=== PATIENT | female | born 1965 | race Asian ===

== ENCOUNTER 2020-06-17 17:36 | Outpatient (CLI) | payer OTHER | END 2020-06-17 17:37 | disposition home or self-care (01) | LOC: COV 17:36 | PROVIDERS: ATTEND Family Medicine | DX: M79.10 Myalgia, unspecified site (principal); J34.89 Other specified disorders of nose and nasal sinuses; Z20.822 Contact with and (suspected) exposure to COVID-19 ==

== ENCOUNTER 2020-07-12 09:15 | Outpatient (CLI) | payer OTHER ==
[2020-07-12 12:07] LABS: BASOPHILS % (AUTO) 0.6 %; EOSINOPHILS # (AUTO) 0.1 10^3/uL (0.0-0.7); EOSINOPHILS % (AUTO) 1.2 %; HGB - HEMOGLOBIN 11.7 g/dL (12.0-16.0); LYMPHOCYTES # (AUTO) 1.2 10^3/uL (1.5-3.5); LYMPHOCYTES % (AUTO) 25.5 %; MEAN CORPUSCULAR HEMOGLOBIN 29.9 pg (27.0-31.0); MEAN CORPUSCULAR HGB CONC 31.3 g/dL (32.0-36.0); MEAN CORPUSCULAR VOLUME 95.7 fL (81.0-99.0); MEAN PLATELET VOLUME 9.9 fL (7.9-10.8); MONOCYTES # (AUTO) 0.3 10^3/uL (0.0-1.0); MONOCYTES % (AUTO) 6.6 %; NEUTROPHILS # (AUTO) 3.2 10^3/uL (1.5-6.6); NEUTROPHILS % (AUTO) 65.7 %; PLT - PLATELET COUNT 278 10^3/uL (130-450); RED BLOOD COUNT 3.91 10^6/uL (4.20-5.40); RED CELL DISTRIBUTION WIDTH 11.3 % (12.0-15.0); WHITE BLOOD COUNT 4.9 x10^3/uL (4.8-10.8)
[2020-07-12 13:00] LABS: ALBUMIN 4.5 g/dL (3.2-5.5); ALBUMIN/GLOBULIN RATIO 1.6 (1.0-2.2); ALKALINE PHOSPHATASE 40 IU/L (42-121); ALT ALANINE AMINOTRANSFERASE 19 IU/L (10-60); AST ASPARTATE AMINOTRANSFERASE 25 IU/L (10-42); BILIRUBIN,TOTAL 0.8 mg/dL (0.2-1.0); BUN - BLOOD UREA NITROGEN 16 mg/dL (6-20); CALCIUM 9.1 mg/dL (8.5-10.3); CARBON DIOXIDE - CO2 24 mmol/L (21-32); CHLORIDE 101 mmol/L (101-111); CHOL/HDL RATIO 2.6 (<4.4); CHOLESTEROL 178 mg/dL; CREATININE 0.7 mg/dL (0.4-1.0); GLUCOSE 85 mg/dL (70-100); HDL CHOLESTEROL 68 mg/dL; TOTAL PROTEIN 7.4 g/dL (6.7-8.2)
== END 2020-07-12 23:59 | disposition home or self-care (01) ==
LOC: LAB.WCP 09:15
PROVIDERS: ATTEND Physician Assistant Medical
DX: Z00.00 Encounter for general adult medical examination without abnormal findings (principal)
CPT/HCPCS: 36415; 80053; 80061; 83721; 84443; 85025

== ENCOUNTER 2021-01-17 11:14 | Outpatient (CLI) | payer OTHER ==
--- NOTE | 2021-01-20 16:37 | Mammography Report ---
BILATERAL DIGITAL SCREENING MAMMOGRAM 3D/2D: 01/17/2021 CLINICAL: Baseline exam. Routine screening.Priors were done in [facility], unable to retreive. No prior exams were available for comparison. The tissue of both breasts is heterogeneously dense. T his may lower the sensitivity of mammography. There is a benign normal lymph node in the left breast in the posterior depth in the upper outer quad rant. There is a 0.6 cm oval equal density focal asymmetry in the right breast at 8 o'clock middle depth 4. 5 cm from the nipple. No other significant masses, calcifications, or other findings are seen in either breast. IMPRESSION: INCOMPLETE: NEEDS ADDITIONAL IMAGING EVALUATION The 0.6 cm oval equal density focal asymmetry in the right breast resembles a cyst or a lymph node an d is indeterminate. Additional views with possible ultrasound are recommended. Given patient history of elevated lifetime breast cancer risk of approximately 28.5%, recommend cons ideration for annual screening breast MRI as an adjunct to screening mammography. This is to be offs et by approximately 6 months from patient's mammograms. This exam was interpreted at Station ID: [id number]. NOTE: For mammograms, a report in lay terms will be sent to the patient. Approximately 15% of breast malignancies will not be visualized mammographically. In the management of a palpable breast mass, a negative mammogram must not discourage biopsy of a clinically suspicious lesion. Electronically Signed By: Andrea Willis M.D. aty/:01/17/2021 12:41:28 ACR BI-RADS Category 0: Incomplete 3340F PARENCHYMAL PATTERN: (D) - The breast(s) demonstrate(s) heterogeneously dense fibroglandular pargina stout. BI-RADS CATEGORY: (0) - 0 Mammo and [place] [id number] Immediate follow-up LATERALITY: (R)
== END 2021-01-17 11:15 | disposition home or self-care (01) ==
LOC: DI 11:14
DX: Z12.31 Encounter for screening mammogram for malignant neoplasm of breast (principal); R92.8 Other abnormal and inconclusive findings on diagnostic imaging of breast

== ENCOUNTER 2021-03-07 10:47 | Outpatient (CLI) | payer OTHER ==
--- NOTE | 2021-03-10 10:20 | Ultrasound Report ---
LIMITED ULTRASOUND OF RIGHT BREAST AND AXILLA: 03/07/2021 CLINICAL: Patient returns today to evaluate a focal asymmetry in the right breast. Comparison is made to exams dated: 03/07/2021 mammogram and 01/17/2021 mammogram - [facility]. Color flow and real-time ultrasound of the right breast 7-9 o'clock, and axilla regions were performe d. Kirk scale images of the real-time examination were reviewed. There is a 0.8 cm x 0.3 cm x 0.7 cm wider than tall oval mass in the right breast at 8 o'clock middle depth 4 cm from the nipple. This oval mass is hypoechoic. This correlates with mammography finding s. Color flow imaging demonstrates that there is no vascularity present. No significant abnormalities were seen sonographically in the right axilla. IMPRESSION: PROBABLY BENIGN The 0.8 cm x 0.3 cm x 0.7 cm wider than tall oval mass in the right breast resembles a fibroadenoma a nd is probably benign. A follow-up right mammogram and a right ultrasound in 6 months is recommended to demonstrate stabilit y. Findings and recommendations were conveyed to the patient during today's evaluation. This exam was interpreted at Station ID: [id number]. Electronically Signed By: Andrea Willis M.D. aty/:03/07/2021 13:42:44 Ultrasound BI-RADS: 3 Probably benign BI-RADS CATEGORY: (3) - 3 Mammo and [place] [id number] 6 month follow-up LATERALITY: (R)
--- NOTE | 2021-03-10 10:20 | Mammography Report ---
UNILATERAL RIGHT DIGITAL DIAGNOSTIC MAMMOGRAM 3D/2D: 03/07/2021 CLINICAL: Patient returns today to evaluate a focal asymmetry in the right breast. Comparison is made to exam dated: 01/17/2021 mammogram - [facility]. The tissue of right breast is heterogeneously dense. This may lower the sensitivity of mammography. There is a 0.9 cm oval equal density focal asymmetry in the right breast at 8 o'clock middle depth 5 cm from the nipple. This is confirmed in today's additional views. No other significant masses or calcifications are seen in the breast. IMPRESSION: INCOMPLETE: NEEDS ADDITIONAL IMAGING EVALUATION The 0.9 cm oval equal density focal asymmetry in the right breast resembles a cyst or a lymph node an d is indeterminate. An ultrasound is recommended for further evaluation and is scheduled to immediately follow this exami nation. This exam was interpreted at Station ID: [id number]. NOTE: For mammograms, a report in lay terms will be sent to the patient. Approximately 15% of breast malignancies will not be visualized mammographically. In the management of a palpable breast mass, a negative mammogram must not discourage biopsy of a clinically suspicious lesion. Electronically Signed By: Andrea Willis M.D. aty/:03/07/2021 12:38:42 ACR BI-RADS Category 0: Incomplete 3340F PARENCHYMAL PATTERN: (D) - The breast(s) demonstrate(s) heterogeneously dense fibroglandular chuck stout. BI-RADS CATEGORY: (0) - 0 Ultrasound [id number] Immediate follow-up LATERALITY: (R)
== END 2021-03-07 10:48 | disposition home or self-care (01) ==
LOC: DI 10:47
PROVIDERS: ATTEND Physician Assistant Medical
DX: R92.8 Other abnormal and inconclusive findings on diagnostic imaging of breast (principal)

== ENCOUNTER 2022-02-18 07:16 | Outpatient (CLI) | payer OTHER ==
[2022-02-18 12:01] LABS: BASOPHILS % (AUTO) 0.9 %; EOSINOPHILS # (AUTO) 0.1 10^3/uL (0.0-0.7); EOSINOPHILS % (AUTO) 2.6 %; HCT - HEMATOCRIT 37.6 % (37.0-47.0); HGB - HEMOGLOBIN 11.7 g/dL (12.0-16.0); LYMPHOCYTES # (AUTO) 1.5 10^3/uL (1.5-3.5); LYMPHOCYTES % (AUTO) 34.7 %; MEAN CORPUSCULAR HEMOGLOBIN 30.2 pg (27.0-31.0); MEAN CORPUSCULAR HGB CONC 31.1 g/dL (32.0-36.0); MEAN CORPUSCULAR VOLUME 97.2 fL (81.0-99.0); MEAN PLATELET VOLUME 10.1 fL (7.9-10.8); MONOCYTES # (AUTO) 0.3 10^3/uL (0.0-1.0); MONOCYTES % (AUTO) 7.3 %; NEUTROPHILS # (AUTO) 2.3 10^3/uL (1.5-6.6); NEUTROPHILS % (AUTO) 54.5 %; PLT - PLATELET COUNT 266 10^3/uL (130-450); RED BLOOD COUNT 3.87 10^6/uL (4.20-5.40); RED CELL DISTRIBUTION WIDTH 11.8 % (12.0-15.0); WHITE BLOOD COUNT 4.2 x10^3/uL (4.8-10.8)
[2022-02-18 12:32] LABS: THYROID STIMULATING HORMONE 3.31 uIU/mL (0.34-5.60)
[2022-02-18 12:35] LABS: ALBUMIN 4.5 g/dL (3.2-5.5); ALBUMIN/GLOBULIN RATIO 1.5 (1.0-2.2); ALKALINE PHOSPHATASE 31 IU/L (42-121); ALT ALANINE AMINOTRANSFERASE 17 IU/L (10-60); AST ASPARTATE AMINOTRANSFERASE 22 IU/L (10-42); BILIRUBIN,TOTAL 0.9 mg/dL (0.2-1.0); BUN - BLOOD UREA NITROGEN 20 mg/dL (6-20); CALCIUM 9.5 mg/dL (8.5-10.3); CARBON DIOXIDE - CO2 28 mmol/L (21-32); CHLORIDE 103 mmol/L (101-111); CHOL/HDL RATIO 3.4 (<4.4); CHOLESTEROL 296 mg/dL; CREATININE 0.7 mg/dL (0.4-1.0); GFR - MDRD 87 (>89); GLUCOSE 84 mg/dL (70-100); HDL CHOLESTEROL 88 mg/dL; SODIUM 139 mmol/L (135-145); TOTAL PROTEIN 7.5 g/dL (6.7-8.2); TRIGLYCERIDES 34 mg/dL
== END 2022-02-18 07:17 | disposition home or self-care (01) ==
LOC: LAB.N 07:16
PROVIDERS: ATTEND Physician Assistant Medical
DX: Z00.00 Encounter for general adult medical examination without abnormal findings (principal); Z13.220 Encounter for screening for lipoid disorders
CPT/HCPCS: 36415; 80053; 80061; 83721; 84443; 85025

== ENCOUNTER 2022-12-18 09:46 | Outpatient (CLI) | payer OTHER ==
--- NOTE | 2022-12-21 09:57 | Ultrasound Report ---
LIMITED ULTRASOUND OF RIGHT BREAST: 12/18/2022 CLINICAL: Patient returns for a 6 month follow up of the right breast. Comparison is made to exams dated: 12/11/2021 ultrasound, 12/11/2021 mammogram, 03/07/2021 ultrasound, an d 03/07/2021 mammogram - [facility]. Color flow ultrasound of the right breast 8-9 o'clock region was performed. Kirk scale images of the real-time examination were reviewed. There is a stable 0.7 cm x 0.7 cm x 0.3 cm oval mass with a circumscribed margin in the right breast at 9 o'clock middle depth 4 cm from the nipple with the long axis parallel to the skin. This oval ma ss displays posterior acoustic shadowing. This correlates with mammography findings. Color flow juan ging demonstrates that there is an adjacent vascularity. IMPRESSION: PROBABLY BENIGN The stable 0.7 cm x 0.7 cm x 0.3 cm oval mass in the right breast most likely is a fibroadenoma and i s probably benign. A follow-up ultrasound in 6 months is recommended. Please note patient is also due for screening mammography and also qualifies for annual supplemental MRI screening due to elevated lifetime risk. This exam was interpreted at Station ID: [id number]. Electronically Signed By: Alexander Hutchinson M.D. lc/:12/18/2022 10:28:12 Ultrasound BI-RADS: 3 Probably benign BI-RADS CATEGORY: (3) - 3 Ultrasound [id number] 6 month follow-up LATERALITY: (B)
== END 2022-12-18 09:47 | disposition home or self-care (01) ==
LOC: DI 09:46
PROVIDERS: ATTEND Physician Assistant Medical
DX: N63.15 Unspecified lump in the right breast, overlapping quadrants (principal)

== ENCOUNTER 2023-02-10 12:07 | Outpatient (CLI) | payer OTHER ==
--- NOTE | 2023-02-12 15:09 | Mammography Report ---
BILATERAL DIGITAL DIAGNOSTIC MAMMOGRAM 3D/2D: 02/10/2023 CLINICAL: Patient returns for short term follow-up of a probably benign mass in the right breast. Due for bilateral imaging. Comparison is made to exams dated: 12/11/2021 mammogram, 03/07/2021 mammogram, and 01/17/2021 mammogram - [facility]. Both breasts are heterogeneously dense, which may obscure small masses (category c / 51-75% glandular tissue). There is an oval equal density focal asymmetry with an obscured margin in the right breast at 9 o'marcial ck middle depth. This is not significantly changed. No other significant masses, calcifications, or other findings are seen in either breast. IMPRESSION: INCOMPLETE: NEEDS ADDITIONAL IMAGING EVALUATION The oval equal density focal asymmetry in the right breast most likely is a fibroadenoma and is indet erminate. This correlates with stable mass seen on prior ultrasound evaluation which demonstrated nearly two ye ars of stability as of most recent ultrasound dated 12/18/2022 and is consistent with a benign process . Patient is scheduled for breast MRI later today. Based on Tyrer-Cuzick model (a risk assessment model), the patient's lifetime risk is 27.9% and her 1 0 year risk is 9.7%. If a patient has an elevated risk, a more comprehensive evaluation should be con sidered and/or a referral to a genetic counselor. The [place], [employer], and NCCN Guidelines advise the consideration of Breast MRI as an adjunct to screening mammog hilario in patients whose "Lifetime risk to develop breast cancer" is 20% or higher. This exam was interpreted at Station ID: [id number]. NOTE: For mammograms, a report in lay terms will be sent to the patient. Approximately 15% of breast malignancies will not be visualized mammographically. In the management of a palpable breast mass, a negative mammogram must not discourage biopsy of a clinically suspicious lesion. Electronically Signed By: Andrea Willis M.D. aty/:02/10/2023 13:47:46 ACR BI-RADS Category 0: Incomplete 3340F PARENCHYMAL PATTERN: (D) - The breast(s) demonstrate(s) heterogeneously dense fibroglandular chuck stout. BI-RADS CATEGORY: (0) - 0 Ultrasound [id number] Immediate follow-up LATERALITY: (R)
== END 2023-02-10 12:08 | disposition home or self-care (01) ==
LOC: DI 12:07
PROVIDERS: ATTEND Family Medicine
DX: R92.8 Other abnormal and inconclusive findings on diagnostic imaging of breast (principal)

== ENCOUNTER 2023-02-10 12:08 | Outpatient (CLI) | payer OTHER ==
--- NOTE | 2023-02-22 15:55 | MRI Report ---
BREAST MRI OF BOTH BREASTS: 02/10/2023 CLINICAL: High risk screening. [facility] assessment - 27.9% Life Time Risk. TECHNIQUE: The patient was placed prone in a dedicated breast imaging coil. Precontrast axial STIR and 3D FLASH without fat saturation sequences were obtained. Both before and after bolus injection of contrast, sequential 1-minute axial 3D FLASH with fat saturation sequences for 3 time points, with subtraction images and maximum intensity projections (MIP's) generated. Delayed sagittal FLASH images with fat s aturation were also obtained. Computer-aided detection, including computer algorithm analysis of MRI image data for lesion detectio n and characterization, pharmacokinetic analysis, with further physician review for interpretation, w as performed. COMPARISON: Mammograms dated 02/10/2023, 12/11/2021, 03/07/2021, 01/17/2021. Ultrasound dated 03/07/2021, , 12/18/2022. Image quality: Diagnostic There is mild background parenchymal enhancement. There is heterogeneously dense fibroglandular tiss ue in the bilateral breasts. Right breast: No suspicious mass, nonmass enhancement, architectural distortion, or other suspicious areas of enhancement. Specifically, no MRI abnormalities identified in the lateral aspect of the rig ht breast near the 9:00 middle depth to correlate with oval equal density focal asymmetry described o n previous mammograms. Additionally, previously noted 9:00 middle depth oval mass approximately 4 cm from the nipple correlates with a suspected focal area of fibroglandular tissue (image 71/series 14). This does not demonstrate associated enhancement or increased T2 signal intensity. No skin or nipple abnormality seen. No axillary or internal mammary chain adenopathy. Left breast: No suspicious mass, nonmass enhancement, architectural distortion or other suspicious a reas of enhancement. No skin or nipple abnormalities. No axillary or internal mammary chain adenopath y. Miscellaneous: The visualized portions of the upper abdomen and chest appear unremarkable. IMPRESSION: BENIGN 1. No MRI evidence for malignancy in the right breast. The mammographic and sonographic findings of c oncern in the right breast near the 9:00 axis, middle depth likely represents a focus of fibroglandul ar tissue. 2. No MRI evidence for malignancy in the left breast. Recommend return to annual screening mammogram (February 2024) and consideration for continued annua l adjunct screening breast MRI. COMMENT: The imaging literature indicates that a negative contrast breast MRI examination has a high sensitivity and a moderate specificity for detecting and excluding invasive carcinomas to a detection threshold of 3-5 mm; nonetheless, appropriate clinical and mammographic follow-up are recommended. MRI is not sensitive for detecting DCIS (ductal carcinoma in situ) and may not detect large invasive neoplasms that show only minimal enhancement such as mucinous carcinoma. If there are suspicious debi cifications or clinically worrisome palpable masses, then biopsy should still be considered. Invasiv e neoplasms can be hidden by co-existent and benign enhancement caused by mastitis, hormone therapy e ffects, radiation therapy, , and recent biopsy or surgery. False positive examinations can occur in a number of circumstances, including breasts that have recently been subject to invasive pro cedures and those that contain atypical ductal hyperplasia, hormonally stimulated glandular tissue, f at necrosis, or radial scars. This exam was interpreted at Station ID: [id number]. Electronically Signed By: Andrea Willis M.D. aty/:02/19/2023 17:53:16 ACR BI-RADS Category 2: Benign Finding(s) 3342F BI-RADS CATEGORY: (2) - 2 Unspecified - other recall n/a LATERALITY: (B)
== END 2023-02-10 12:09 | disposition home or self-care (01) ==
LOC: DI 12:08
PROVIDERS: ATTEND Physician Assistant Medical
DX: R92.8 Other abnormal and inconclusive findings on diagnostic imaging of breast (principal)
CPT/HCPCS: 77049; 77066; A9585